=== PATIENT | female | born 1955 | race Caucasian/White ===

== ENCOUNTER 2020-09-09 10:59 | Emergency (ER) | payer OTHER, SELFPAY ==
[2020-09-09 11:31] VITALS: BP 183/115; PULSE 74; RESP 18; TEMP 36.2; O2SAT 96; BMI 34.9
--- NOTE | 2020-09-09 12:13 | XR_ITS ---
WS: [id number] Exam: XR chest 1V portable [id number] Date/Time of Exam: 09/09/2020 12:30 PM Reason For Exam: dyspnea/cough No priors. The lungs are clear and fully expanded. Normal cardiomediastinal structures and bony elements. There are 2 ill-defined soft tissue nodules that project over the left heart both measuring about a centime ter each at greatest diameter. This could be image artifact however nodules in the left lower lobe mi ght have similar appearance. Recommendations: A detailed PA and lateral chest radiograph would be suggested for follow-up. XR/XR chest 1V portable [id number] IMPRESSION: 1. No acute cardiopulmonary finding. 2. There are 2 ill-defined soft tissue nodules project over the left heart that could represent nodules in the left lower lobe.
--- NOTE | 2020-09-09 12:13 | ECG_ITS ---
[facility] Test Date: 2020-09-09 Pat Name: Sandy Syed Department: Room: Gender: Female Legal Collector: : 1955 Requested By: Kendall Acosta Order Number: [id number] Smooth MD: Pierre Bagley M.D. Measurements Intervals [place] Rate: 59 P: 18 IL: 117 QRS: 24 QRSD: 92 T: 16 QT: 398 QTc: 396 Interpretive Statements SINUS BRADYCARDIA WITH SHORT IL INTERVAL MINIMAL VOLTAGE CRITERIA FOR LVH, CONSIDER NORMAL VARIANT [MEETS CRITERIA IN ONE OF: R(aVL), S(V1), R(V5), R(V5/V6)+S(V1)] No previous ECG available for comparison Electronically Signed On 09-09-2020 17:41:14 CDT by Pierre Bagley M.D. [email or web address]
[2020-09-09 13:37] LABS: Basophils # 0.1 10^3/uL (0.0-0.1); Basophils % 1.1 %; Eosinophils # 0.1 10^3/uL (0.0-0.8); Eosinophils % 1.8 %; Hematocrit 43.4 % (37.0-47.0); Hemoglobin 13.5 g/dL (11.5-15.3); Lymphocytes # 1.6 10^3/uL (0.8-4.8); Lymphocytes % 26.3 %; Mean Corpuscular HGB Conc 31.1 g/dL (30.0-36.0); Mean Corpuscular Hemoglobin 29.3 pg (28.0-34.0); Mean Corpuscular Volume 94.3 fL (81-99); Mean Platelet Volume 13.8 fL (7.4-10.4); Monocytes # 0.6 10^3/uL (0.2-0.9); Monocytes % 9.4 %; Neutrophils % 61.2 %; Nucleated Red Blood Cells % 0 %; Platelet Count 176 10^3/cmm (130-400); Red Cell Distribution Width 12.9 % (12.1-15.1); White Blood Count 6.2 10^3/uL (4.0-10.0)
[2020-09-09 13:37] LABS: Add Urine Microscopic? YES; Bilirubin Urine Neg (Negative); Blood Urine Neg (Negative); Glucose Urine UA Norm (Normal); Ketones Urine 1+ (Negative); Leukocyte Esterase Urine Trace (Negative); Nitrate Urine Negative (Negative); Protein Urine Neg (Negative); Urine Appearance Clear (CLEAR); Urine Color Yellow (Yellow); Urobilinogen Urine Norm (Negative); pH Urine 7 (5-7)
[2020-09-09 13:56] LABS: Add Urine Culture? No; Bacteria Urine TRACE /hpf; RBC Urine 0-4 /hpf (0-2); Squamous Epithelial Cell Urine 0-4 /hpf (0-5); Transitional Epi Cells Urine 0-4 /hpf; WBC Urine 0-4 /hpf (0-5)
[2020-09-09 14:02] LABS: Alanine Aminotransferase 17 U/L (0-33); Albumin Level 4.6 g/dL (3.5-5.2); Alkaline Phosphatase 70 IU/L (35-105); Anion Gap 13.9 (5-19); Aspartate Amino Transferase 18 U/L (0-32); Blood Urea Nitrogen 10 mg/dL (8-23); Calcium 9.5 mg/dL (8.5-10.5); Carbon Dioxide 25 mmol/L (22-29); Chloride 105 mmol/L (98-107); Globulin 2.6 g/dL (1.3-4.6); Glomerular Filtration Rate 124.2 mL/min (90-130); Glucose 85 mg/dL (65-115); Osmolality Calculated 288 mOsm/kg (285-295); Potassium 3.9 mmol/L (3.5-5.1); Sodium 140 mmol/L (136-145); Total Bilirubin 1.1 mg/dL (0.15-1.2); Total Protein 7.2 g/dL (6.6-8.7)
[2020-09-09 14:28] VITALS: BP 210/94; PULSE 66; RESP 16; O2SAT 98
[2020-09-09] MEDS: amlodipine 5 mg Tablet PO (14:54)
[2020-09-09] MEDS: metoprolol tartrate 25 mg Tablet 12.5 MG PO (14:54)
[2020-09-09 15:19] VITALS: BP 204/93; RESP 18; O2SAT 96
[2020-09-09 16:03] LABS: Troponin T (5th) Once 6 ng/L (0-10)
[2020-09-09 16:05] VITALS: BP 176/91; PULSE 74; RESP 18; O2SAT 98
--- NOTE | 2020-09-09 16:09 | ED_ITS ---
HPI - General Adult General: Chief complaint: General Medical Stated complaint: high blood pressure Time Seen by Provider: 09/09/20 14:21 Source: patient Mode of arrival: ambulatory Limitations: no limitations History of Present Illness: HPI narrative: 65-year-old female patient who presents to the emergency department with worsening hypertension. She has no history of hypertension but said that 2 days ago she had vertigo, with symptoms consisting of the room spinning. She took meclizine which helped her symptoms. However she checked her blood pressure daily and it was elevated. She has been checking her blood pressure daily since then and it has been getting higher and is now in the 190s systolic. She denies a headache, chest pain, difficulty breathing. Denies any blood in her urine. Because her blood pressure remains elevated she presents to the emergency department to be seen and evaluated. Onset (ago): day(s) (2) Severity: moderate Associated symptoms: Deny chest pain, confusion, cough, diaphoresis, decreased appetite, dyspnea, fevers/chills, headache(s), malaise, nausea, rash, palpitations, seizures, short of breath, syncope, vomiting or weakness Review of Systems General: Reports: 10 or more systems reviewed and unremarkable except in HPI and below Const: Denies: malaise or diaphoresis Card: Denies: chest pain, palpitations or syncope Resp: Denies: dyspnea GI: Denies: nausea or vomiting Skin/Breast: Denies: rash Neuro: Denies: headache(s) or confusion PFS ED PFSH: Social History Smoking and tobacco status: never smoked Physical Exam Const: COMMON NORMALS: no acute distress, average body habitus, patient oriented x3, no limitations, healthy appearing, alert and well nourished HENMT: COMMON NORMALS: normocephalic, atraumatic and moist oral mucous membranes HEAD & SCALP: normocephalic and atraumatic Neck/C-Spine: COMMON NORMALS: no meningeal signs and no JVD Chest: COMMONS NORMALS: normal inspection of the chest and normal palpation of entire chest wall Resp: COMMON NORMALS: normal respiratory effort, No retractions, No use of accessory muscles, clear to auscultation bilaterally and percussion normal AUSCULTATION: clear to auscultation bilaterally PERCUSSION: percussion normal Cardio: COMMON NORMALS: no JVD, regular rate, regular rhythm, S1 normal heart sound present, S2 normal heart sound present, No gallops present (Cardio), No clicks present (Cardio), No murmurs present (Cardio), No rub (Cardio) and Peripheral pulses 2+ throughout RATE: regular rate RHYTHM: regular rhythm HEART SOUNDS: S1 normal heart sound present and S2 normal heart sound present PERIPHERAL PULSES: Peripheral pulses 2+ throughout GI: COMMON NORMALS: Normal to inspection, nondistended, normoactive bowel sounds present, Soft to palpation, non-tender, No hepatosplenomegaly present, no masses and no bruits PALPATION: Yes Soft to palpation and Yes No hepatosplenomegaly present Extremity: COMMON NORMALS: normal to inspection, full ROM, capillary refill normal, no calf tenderness and no pedal edema Neuro: COMMON NORMALS: patient oriented x3 SENSORIUM/ORIENTATION: Yes alert MENINGEAL SIGNS: Yes no meningeal signs Skin: COMMON NORMALS: no rashes or lesions noted, no wounds, turgor normal, no jaundice, no petechiae and no mottling GENERAL SKIN EXAM: no rashes or lesions noted and turgor normal Course Reevaluation(s): Reevaluation #1: Discussed her lab and imaging findings with her. Negative for acute findings. Blood pressure improving. We will discharge her home with a prescription for amlodipine. She will follow-up with her primary care provider for further monitoring of her blood pressure and adjustment of medication if needed. Chest x-ray shows incidental pulmonary nodules. She is to follow-up with her primary care provider for further characterization of the nodules including CT scan of her lungs. She voiced understanding and is in agreement with the plan Time: 16:09 Vital Signs: Vital signs: Vital Signs Temperature 97.2 F L 09/09/20 11:31 Pulse Rate 74 09/09/20 16:33 Respiratory Rate 18 09/09/20 16:33 Blood Pressure 176/91 09/09/20 16:33 Pulse Oximetry 98 09/09/20 16:33 MDM - General Adult MDM Narrative: Medical decision making narrative: 65-year-old female patient who presents to the emergency department with complaints of hypertension and vertigo. Evaluation in the ED is unremarkable. Blood pressure was significantly elevated in the emergency department but it responded to oral antihypertensives. She is discharged home with a prescription for amlodipine and is to follow-up with her primary care provider. Lab Data: Labs: Lab Results 09/09/20 09/09/20 09/09/20 Range/Units 12:50 13:31 13:31 WBC 6.2 (4.0-10.0) 10^3/ uL RBC 4.60 (4.1-5.3) 10^6/u L Hgb 13.5 (11.5-15.3) g/dL Hct 43.4 (37.0-47.0) % MCV 94.3 (81-99) fL MCH 29.3 (28.0-34.0) pg MCHC 31.1 (30.0-36.0) g/dL RDW 12.9 (12.1-15.1) % Plt Count 176 (130-400) 10^3/c mm MPV 13.8 H (7.4-10.4) fL Neut % (Auto) 61.2 % Lymph % (Auto) 26.3 % [place] % (Auto) 9.4 % Eos % (Auto) 1.8 % Baso % (Auto) 1.1 % Neut # (Auto) 3.80 (1.8-7.7) 10^3/u L Lymph # (Auto) 1.6 (0.8-4.8) 10^3/u L [place] # (Auto) 0.6 (0.2-0.9) 10^3/u L Eos # (Auto) 0.1 (0.0-0.8) 10^3/u L Baso # (Auto) 0.1 (0.0-0.1) 10^3/u L Nucleated RBC % (a uto) 0 % Nucleated RBCs # 0.0 /100WBC Sodium 140 (136-145) mmol/L Potassium 3.9 (3.5-5.1) mmol/L Chloride 105 (98-107) mmol/L Carbon Dioxide 25 (22-29) mmol/L Anion Gap 13.9 (5-19) BUN 10 (8-23) mg/dL Creatinine 0.5 (0.5-0.9) mg/dL GFR Calculation 124.2 (90-130) mL/min Glucose 85 (65-115) mg/dL Calculated Osmolal ity 288 (285-295) mOsm/k g Calcium 9.5 (8.5-10.5) mg/dL Total Bilirubin 1.1 (0.15-1.2) mg/dL AST 18 (0-32) U/L ALT 17 (0-33) U/L Alkaline Phosphata se 70 (35-105) IU/L Troponin T Gen 5 n g/L (0-10) ng/L Total Protein 7.2 (6.6-8.7) g/dL Albumin 4.6 (3.5-5.2) g/dL Globulin 2.6 (1.3-4.6) g/dL TSH (0.27-4.20) uIU/ mL Urine Color Yellow (Yellow) Urine Appearance Clear (CLEAR) Urine pH 7 (5-7) Ur Specific Gravit y 1.010 (1.005-1.030) Urine Protein Neg (Negative) Urine Glucose (UA) Norm (Normal) Urine Ketones 1+ H (Negative) Urine Blood Neg (Negative) Urine Nitrate Negative (Negative) Urine Bilirubin Neg (Negative) Urine Urobilinogen Norm (Negative) mg/dL Ur Leukocyte Selina ase Trace H (Negative) Urine RBC 0-4 H (0-2) /hpf Urine WBC 0-4 H (0-5) /hpf Ur Squamous Epith Cells 0-4 H (0-5) /hpf Ur Transition Epit h Cell 0-4 /hpf Amorphous Sediment Not Reportable Urine Bacteria Trace (NONE) /hpf 09/09/20 09/09/20 Range/Units 13:31 Unknown WBC (4.0-10.0) 10^3/ uL RBC (4.1-5.3) 10^6/u L Hgb (11.5-15.3) g/dL Hct (37.0-47.0) % MCV (81-99) fL MCH (28.0-34.0) pg MCHC (30.0-36.0) g/dL RDW (12.1-15.1) % Plt Count (130-400) 10^3/c mm MPV (7.4-10.4) fL Neut % (Auto) % Lymph % (Auto) % [place] % (Auto) % Eos % (Auto) % Baso % (Auto) % Neut # (Auto) (1.8-7.7) 10^3/u L Lymph # (Auto) (0.8-4.8) 10^3/u L [place] # (Auto) (0.2-0.9) 10^3/u L Eos # (Auto) (0.0-0.8) 10^3/u L Baso # (Auto) (0.0-0.1) 10^3/u L Nucleated RBC % (a uto) % Nucleated RBCs # /100WBC Sodium (136-145) mmol/L Potassium (3.5-5.1) mmol/L Chloride (98-107) mmol/L Carbon Dioxide (22-29) mmol/L Anion Gap (5-19) BUN (8-23) mg/dL Creatinine (0.5-0.9) mg/dL GFR Calculation (90-130) mL/min Glucose (65-115) mg/dL Calculated Osmolal ity (285-295) mOsm/k g Calcium (8.5-10.5) mg/dL Total Bilirubin (0.15-1.2) mg/dL AST (0-32) U/L ALT (0-33) U/L Alkaline Phosphata se (35-105) IU/L Troponin T Gen 5 n g/L 6 (0-10) ng/L Total Protein (6.6-8.7) g/dL Albumin (3.5-5.2) g/dL Globulin (1.3-4.6) g/dL TSH 0.63 (0.27-4.20) uIU/ mL Urine Color (Yellow) Urine Appearance (CLEAR) Urine pH (5-7) Ur Specific Gravit y (1.005-1.030) Urine Protein (Negative) Urine Glucose (UA) (Normal) Urine Ketones (Negative) Urine Blood (Negative) Urine Nitrate (Negative) Urine Bilirubin (Negative) Urine Urobilinogen (Negative) mg/dL Ur Leukocyte Selina ase (Negative) Urine RBC (0-2) /hpf Urine WBC (0-5) /hpf Ur Squamous Epith Cells (0-5) /hpf Ur Transition Epit h Cell /hpf Amorphous Sediment Urine Bacteria (NONE) /hpf Imaging Data^: CXR: Attestation: I personally reviewed and interpreted this imaging study as follows: Radiologist's impression: [facility] [facility].[place], [place] [address]LBqr ReportSigned Patient: Arely Syed #: [id number]: 6Acct#:[id number]/Sex: 65 / FADM Date: 09/09/20Loc: ERRoom/Bed:Attending Dr: Ordering Provider/Ordering MD: Kendall Dorado DO Date of Service: 09/09/20 Procedure(s): XR chest 1V portable [id number] Accession Number(s): [id number] Report Number: [id number] WS: [id number] Exam: XR chest 1V portable [id number] Date/Time of Exam: 09/09/2020 12:30 PM Reason For Exam: dyspnea/cough No priors. The lungs are clear and fully expanded. Normal cardiomediastinal structures and bony elements. There are 2 ill-defined soft tissue nodules that project over the left heart both measuring about a centimeter each at greatest diameter. This could be image artifact however nodules in the left lower lobe might have similar appearance. Recommendations: A detailed PA and lateral chest radiograph would be suggested for follow-up. XR/XR chest 1V portable [id number] IMPRESSION: 1. No acute cardiopulmonary finding. 2. There are 2 ill-defined soft tissue nodules project over the left heart that could represent nodules in the left lower lobe. Dictated By:Marieigned By:Jacque Gilbert Date/Time:09/09/20 1246DD/ 1242 EKG Data^: EKG 1: Attestation: I personally reviewed and interpreted this EKG as follows: EKG interpretation date: 09/09/20 EKG interpretation time: 13:59 Prior EKG tracings: available for review Interpretation: Sinus bradycardia. Heart rate [address] changes. Computer generated interpretation: Chest X-Ray 09/09/20 12:13 IMPRESSION: 1. No acute cardiopulmonary finding. 2. There are 2 ill-defined soft tissue nodules project over the left heart that could represent nodules in the left lower lobe. Discharge Plan Discharge Patient Disposition: Home Clinical Impression: Hypertensive urgency, Pulmonary nodule Benign paroxysmal positional vertigo Qualifiers: Laterality: unspecified laterality Qualified Code(s): H81.10 - Benign paroxys mal vertigo, unspecified ear Condition: Stable Prescriptions: New amlodipine 5 mg tablet 5 mg PO DAILY Qty: 30 RF: 0 Continued armour thyroid 60 mg PO DAILY RF: 0 multivitamin Tablet 1 tab PO DAILY RF: 0 Discharge Orders: Discharge ED (Routine); Ordered 09/09/20 Ordered By: Kamar Hernandez Referrals: Paulino Smallwood DO [Primary Care Provider] - 1-3 days Discharge Diet: As Directed Discharge Activity: Increase activity as tolerated Patient Instructions: Vertigo (ED), Hypertension (ED) Activity Restrictions/Additional Instructions: Return for any new or worsening symptoms. Follow-up with your primary care provider within 3 days. Take the blood pressure medication that I prescribed every day and check your blood pressure at least once a day. Consume a low salt diet. Coding Level of Care Code ED Clinical Staff Educator for Alba Wheeler
[2020-09-09 16:33] VITALS: BP 176/91; PULSE 74; RESP 18; O2SAT 98
[2020-09-09 17:03] LABS: Thyroid Stimulating Hormone 0.63 uIU/mL (0.27-4.20)
== END 2020-09-09 16:34 | disposition home or self-care (01) ==
PROVIDERS: Family Medicine; Emergency Provider Family Medicine; PCP Family Medicine
DX: I16.0 Hypertensive urgency (principal); R91.8 Other nonspecific abnormal finding of lung field; H81.10 Benign paroxysmal vertigo, unspecified ear
CPT/HCPCS: 36415; 71045; 80053; 81001; 84443; 84484; 85025; 93005; 99284

== ENCOUNTER → 2020-09-22 11:33 | Outpatient (BNVA) | payer OTHER, SELFPAY | PROVIDERS: PCP Family Medicine; Visit Provider Family Medicine | DX: E03.9 Hypothyroidism, unspecified (principal); I10 Essential (primary) hypertension | CPT/HCPCS: 80061; 82043; 84439 ==

== ENCOUNTER 2022-02-17 06:00 | Outpatient (RCR) | payer MEDICARE, OTHER, SELFPAY | END 2022-03-16 23:59 | disposition home or self-care (01) | LOC: SPT 06:00 | PROVIDERS: PCP Family Medicine; Visit Provider Family Medicine | DX: M54.6 Pain in thoracic spine (principal) | CPT/HCPCS: 97110; 97161; 97530 ==

== ENCOUNTER 2022-03-17 06:00 | Outpatient (RCR) | payer OTHER, MEDICARE, SELFPAY | END 2022-03-30 23:59 | disposition home or self-care (01) | LOC: SPT 06:00 | PROVIDERS: PCP Family Medicine; Visit Provider Family Medicine | DX: M54.6 Pain in thoracic spine (principal); G89.29 Other chronic pain | CPT/HCPCS: 97110 ==

== ENCOUNTER 2022-03-23 09:07 | Outpatient (CLI) | payer MEDICARE, OTHER, SELFPAY ==
--- NOTE | 2022-03-23 09:19 | MM_ITS ---
WS: [id number] SCREENING DIGITAL BREAST TOMOSYNTHESIS MAMMOGRAM WITH CAD HISTORY: screening mammogram COMPARISON: 12/25/2008 Bilateral CC and MLO with tomosynthesis and synthetic mammography submitted. Computer aided detection analyzed. Breast composition: There are scattered areas of fibroglandular density. Seen on the LEFT CC projecti on in the posterior breast is a 7 mm asymmetry. No corresponding finding seen on the lateral projecti on. This was not present on the prior study. Otherwise no abnormality. MM/[place] [id number] IMPRESSION: BI-RADS: 0-Incomplete: Need additional imaging evaluation FOLLOW UP: Need Additional Imaging LEFT breast: Spot compression views (CC ). True ML. Ultrasound to follow if abn ormality persists.
== END 2022-03-23 09:08 | disposition home or self-care (01) ==
LOC: RAD 09:09
PROVIDERS: PCP Family Medicine; Visit Provider Family Medicine
DX: Z12.31 Encounter for screening mammogram for malignant neoplasm of breast (principal)
CPT/HCPCS: 77063; 77067

== ENCOUNTER 2022-03-25 13:19 | Outpatient (CLI) | payer MEDICARE, OTHER, SELFPAY ==
--- NOTE | 2022-03-25 13:00 | XR_ITS ---
WS: [id number] DEXA (DUAL ENERGY X-RAY ABSORPTIOMETRY) Bone mineral density was performed using a Kiwigrid machine. HISTORY: post-menopausal COMPARISON: None available. Lumbar spine BMD (L1-L4): 0.896 g/cm2 T score: -2.4 Z score: -1.5 Total hip BMD: Left: 0.873 g/cm2. T score: -1.1 Z score: -0.4 Right: 0.934 g/cm2. T score: -0.6 Z score: 0.1 10 year probability of a major osteoporotic fracture is 10%. XR/XR DEXA axial skeleton* [id number] IMPRESSION: OSTEOPENIA based upon the WHO classification for females.
== END 2022-03-25 13:20 | disposition home or self-care (01) ==
LOC: RAD 13:20
PROVIDERS: PCP Family Medicine; Visit Provider Family Medicine
DX: Z78.0 Asymptomatic menopausal state (principal); M85.80 Other specified disorders of bone density and structure, unspecified site
CPT/HCPCS: 77080

== ENCOUNTER 2022-04-20 13:39 | Outpatient (CLI) | payer MEDICARE, OTHER, SELFPAY ==
--- NOTE | 2022-04-20 14:00 | MM_ITS ---
WS: [id number] Left breast diagnostic 3D tomosynthesis digital mammogram, 04/20/2022 Clinical Data: abnormal left breast on mammo Comparison: 03/23/2022, 12/25/2008, 04/28/2006. Findings: The vague density noted on the left cc view on 03/23/2022 is not seen on the repeat CC and the MLO vie ws of the left breast. Only normal breast tissue is seen. There are no spiculated masses. No cysts ar e seen. Only normal breast tissue is noted. MM/[place] [address] Impression: 1. Negative left breast mammogram. 2. Left breast ultrasound will be performed. BIRADS: 1-Negative FOLLOW UP: See Report The CAD checkerer hand was used.
--- NOTE | 2022-04-20 14:00 | US_ITS ---
WS: [email or web address] Left breast ultrasound, 04/20/2022 Clinical Data: Z12.31 - Encounter for screening mammogram for malignant ... Comparison: Mammogram, 04/20/2022 Findings: Imaging of the left breast in the lower outer quadrant revealed no cysts or masses. Only normal breas t tissue was seen. US/US breast LT limited* 80207 Impression: 1. Negative left breast ultrasound. 2. Return to annual screening mammograms. BIRADS: 1-Negative FOLLOW UP: See Report
== END 2022-04-20 13:40 | disposition home or self-care (01) ==
PROVIDERS: PCP Family Medicine; Visit Provider Family Medicine
DX: R92.8 Other abnormal and inconclusive findings on diagnostic imaging of breast (principal)
CPT/HCPCS: 76642; 77061; G0279

== ENCOUNTER → 2022-08-23 10:16 | Outpatient (BNVA) | payer MEDICARE, SELFPAY | PROVIDERS: PCP Family Medicine; Visit Provider Family Medicine | DX: I10 Essential (primary) hypertension (principal); E03.9 Hypothyroidism, unspecified | CPT/HCPCS: 80053; 80061; 82043; 84439; 84443; 84480; 85025 ==

== ENCOUNTER → 2023-01-19 13:29 | Outpatient (BNVA) | payer MEDICARE, SELFPAY | PROVIDERS: PCP Family Medicine; Visit Provider Dermatology | DX: L82.0 Inflamed seborrheic keratosis (principal); L81.4 Other melanin hyperpigmentation; D18.01 Hemangioma of skin and subcutaneous tissue; L82.1 Other seborrheic keratosis | CPT/HCPCS: 17110; 99213 ==

== ENCOUNTER 2023-01-23 10:30 | Emergency (ER) | payer MEDICARE, SELFPAY ==
--- NOTE | 2023-01-23 10:31 | XRR_ITS ---
PROCEDURE INFORMATION: Exam: XR Left Knee Exam date and time: 01/23/2023 10:48 AM Age: 68 years old Clinical indication: Pain; Knee; Left TECHNIQUE: Imaging protocol: Radiologic exam of the left knee. Views: 3 views. COMPARISON: No relevant prior studies available. FINDINGS: Bones/joints: Normal. Soft tissues: Normal. XR/XR knee LT 3V* [id number] IMPRESSION: No acute findings.
[2023-01-23 10:38] VITALS: BP 149/87; PULSE 69; RESP 15; TEMP 36.7; O2SAT 97; BMI 33.3
--- NOTE | 2023-01-23 10:51 | W.ED.BACK ---
HPI - Back Pain/Injury General: Chief Complaint: Back Pain/Injury Stated Complaint: left knee pain Time Seen by Provider: 01/23/23 10:33 Source: patient Mode of arrival: ambulatory History of Present Illness: 68-year-old female states 5 days ago she was lifting a heavy trash can twisted she has back pain and left knee pain radiates down from back to her left hip thigh and knee. Is more severe in the knee today. She has had a slight limp no other injury or fall she has had some chronic back pain issues in the past. MD elicited complaint: back pain Pertinent past history: prior back pain Onset (ago): day(s) (5) Timing: constant Severity: moderate Similar Symptoms Previously: Yes Quality: aching Location: lumbar spine Radiation: left upper leg Exacerbating factors: movement, sitting upright and walking Relieving factors: supine Context: while lifting and turning/twisting Associated symptoms: Reports myalgias and tingling/numbness/burning; Deny abdominal pain, arthralgias, chills, change in bowel habits, difficulty walking, dysuria, fatigue, fecal incontinence, fever(s), hematuria, nausea, numbness, syncope, urinary frequency, urinary urgency, vomiting or weakness Work related injury: No Review of Systems Const: Denies: fever(s), chills or fatigue Card: Denies: syncope Resp: Denies: dyspnea GI: Denies: abdominal pain, nausea, vomiting, fecal incontinence or change in bowel habits : Denies: dysuria, urinary urgency or hematuria Musc: Denies: neck pain or back pain Skin/Breast: Denies: rash Neuro: Denies: difficulty walking PFSH ED PFSH: Medical History Essential hypertension Hypothyroidism Seasonal allergies Surgical History History of tonsillectomy and adenoidectomy Family History Other CAD (coronary artery disease) Dementia Diabetes Hypertension Social History Smoking and tobacco status: never smoked Alcohol intake: current Alcohol intake frequency: 0-2 Drinks per Day Substance/Drug Use: never Physical Exam Const: COMMON NORMALS: no acute distress GENERAL APPEARANCE: cooperative and comfortable ORIENTATION/CONSCIOUSNESS: Yes awake, Yes oriented to person, Yes oriented to place and Yes oriented to time HENMT: COMMON NORMALS: normocephalic, atraumatic and hearing grossly normal bilaterally HEAD & SCALP: normocephalic and atraumatic Resp: COMMON NORMALS: normal respiratory effort, No retractions, No use of accessory muscles and clear to auscultation bilaterally AUSCULTATION: clear to auscultation bilaterally Cardio: COMMON NORMALS: regular rate, regular rhythm and No murmurs present (Cardio) RATE: regular rate RHYTHM: regular rhythm Extremity: COMMON NORMALS: normal to inspection, capillary refill normal, no clubbing, cyanosis or edema, no calf tenderness and no pedal edema OTHER: Examination left knee no instability of collateral or cruciate ligaments. No joint effusion Neuro: SENSORIUM/ORIENTATION: Yes oriented to person, Yes oriented to place and Yes oriented to time OTHER: Patellar tendons +1 of 4 bilaterally dorsum plantarflexion 5/5 sensation normal straight leg raising negative Skin: COMMON NORMALS: no rashes or lesions noted GENERAL SKIN EXAM: no rashes or lesions noted Course Vital Signs: Vital signs: Vital Signs Temperature 98.0 F 01/23/23 10:38 Pulse Rate 69 01/23/23 10:38 Respiratory Rate 15 01/23/23 10:38 Blood Pressure 149/87 01/23/23 10:38 Pulse Oximetry 97 01/23/23 10:38 Oxygen Delivery Me thod Room Air 01/23/23 10:38 MDM - Back Pain/Injury Medical Decision Making Normal x-ray left knee. Based on her history and exam suspect she has irritation of the L4 V nerve root on the left start on prednisone muscle relaxers and anti-inflammatories. Follow-up with primary care if not improving can refer to PT or advanced imaging as deemed appropriate Medical Records I reviewed the patient's medical records. Labs I reviewed the patient's lab results. XR interpretation done by ED provider, pending radiology final review Discharge Plan Discharge Patient Disposition: Home Clinical Impression: Lumbar radiculopathy Condition: Stable Prescriptions: New tizanidine 4 mg tablet 4 mg PO Q6H PRN (Reason: muscle spasticity) Qty: 20 0RF Rx Instructions: do not exceed 3 doses per 24 hrs prednisone 20 mg tablet 20 mg PO TID Qty: 15 0RF Rx Instructions: 1 p.o. 3 times daily x3 days, 1 p.o. twice daily x2 days, 1 p.o. daily x2 days diclofenac sodium 75 mg tablet,delayed release (DR/EC) 75 mg PO Q12H PRN (Reason: pain) Qty: 20 0RF Discontinued ibuprofen 200 mg Tablet 200 mg PO Q4H PRN (Reason: Pain) No Action losartan 25 mg tablet 25 mg PO BID Qty: 180 1RF multivitamin Tablet 1 tab PO QAM [place] Thyroid 60 mg tablet 60 mg PO QAM Unknown Otc Supplement Names See Rx Instructions .ROUTE .COMPLEX Rx Instructions: pt states she takes some other otc supplements but states she cant think of the names of them Discharge Orders: Discharge ED (Routine); Ordered 01/23/23 Ordered By: Kendall Dorado Referrals: Ximena Aragon DO [Primary Care Provider] - Discharge Diet: Usual diet Discharge Activity: Increase activity as tolerated Patient Instructions: Lumbar Radiculopathy (ED), Opioid Safety, Pain Management Coding Level of Care Code ED Wood Repatcher for Alba Wheeler
--- NOTE | 2023-01-23 11:16 | PC.PHAR ---
pt states she takes care of her own medications-pt states she takes some other otc supplements but states she cant think of the names of them-
[2023-01-23] MEDS: orphenadrine 30 mg/mL Inj 2 mL 60 MG IVP (11:20)
[2023-01-23] MEDS: dexamethasone 10 mg/mL INJ IM (11:20)
[2023-01-23] MEDS: ketorolac 30 mg/mL INJ IVP (11:20)
== END 2023-01-23 12:03 | disposition home or self-care (01) ==
PROVIDERS: Emergency Provider Family Medicine; PCP Family Medicine
DX: M54.16 Radiculopathy, lumbar region (principal); I10 Essential (primary) hypertension
CPT/HCPCS: 73562; 96372; 96374; 96375; 99284; J1100; J1885; J2360

== ENCOUNTER 2023-01-27 11:13 | Outpatient (CLI) | payer MEDICARE, SELFPAY ==
--- NOTE | 2023-01-27 11:19 | XR_ITS ---
WS: [email or web address] Lumbar spine, 3 views, 01/27/2023 Clinical Data: back pain Comparison: None. Findings: No compression fractures are seen. There is degenerative disc narrowing at L4-L5 and L5-S1. There is 0.6 cm anterior subluxation of L4 on L5. The transverse processes and SI joints are normal. Impression: 1. Degenerative disc narrowing at L4-L5 and L5-S1. 2. 0.6 cm anterior subluxation of L4 on L5.
== END 2023-01-27 11:14 | disposition home or self-care (01) ==
PROVIDERS: PCP Family Medicine; Visit Provider Family Medicine
DX: M54.16 Radiculopathy, lumbar region (principal); M51.37 Other intervertebral disc degeneration, lumbosacral region
CPT/HCPCS: 72100

== ENCOUNTER 2023-02-21 11:58 | Outpatient (RCR) | payer MEDICARE, SELFPAY | END 2023-03-16 23:59 | disposition home or self-care (01) | LOC: SPT 11:58 | PROVIDERS: PCP Family Medicine; Visit Provider Family Medicine | DX: M54.16 Radiculopathy, lumbar region (principal); M54.6 Pain in thoracic spine; G89.29 Other chronic pain | CPT/HCPCS: 97110; 97161; 97530 ==

== ENCOUNTER 2023-03-17 06:00 | Outpatient (RCR) | payer MEDICARE, SELFPAY | END 2023-03-17 23:59 | disposition home or self-care (01) | LOC: SPT 06:00 | PROVIDERS: PCP Family Medicine; Visit Provider Family Medicine | DX: M54.16 Radiculopathy, lumbar region (principal); M54.6 Pain in thoracic spine; G89.29 Other chronic pain | CPT/HCPCS: 97110; 97530 ==

== ENCOUNTER → 2023-03-23 14:16 | Outpatient (BNVA) | payer MEDICARE, SELFPAY | PROVIDERS: PCP Family Medicine; Visit Provider Dermatology | DX: L81.4 Other melanin hyperpigmentation (principal); L82.1 Other seborrheic keratosis; D22.5 Melanocytic nevi of trunk; D22.62 Melanocytic nevi of left upper limb, including shoulder; D22.72 Melanocytic nevi of left lower limb, including hip; L82.0 Inflamed seborrheic keratosis | CPT/HCPCS: 17110; 99213 ==

== ENCOUNTER → 2023-06-05 09:55 | Outpatient (BNVA) | payer MEDICARE, SELFPAY | PROVIDERS: PCP Family Medicine; Visit Provider Family Medicine | DX: Z11.59 Encounter for screening for other viral diseases (principal); E03.9 Hypothyroidism, unspecified; I10 Essential (primary) hypertension; Z13.6 Encounter for screening for cardiovascular disorders | CPT/HCPCS: 80053; 84439; 84443; 84480; 86803 ==

== ENCOUNTER 2023-06-13 08:29 | Outpatient (CLI) | payer MEDICARE, SELFPAY ==
--- NOTE | 2023-06-13 08:30 | MM_ITS ---
WS: [email or web address] VIEWS: MLO and CC views both breasts. 3D digital tomosynthesis is also included in this exam. Comparison made with prior exam of 04/28/2006, 03/23/2022, 04/20/2022,. Findings: There was no sign of mass, architectural distortion or suspicious calcification in either breast. Sta ble appearing nodular densities in the LEFT breast. There are scattered areas of fibroglandular densi ty Impression: MM/[place] [id number] BI-RADS: 2-Benign finding. FOLLOW-UP: 1 Year Follow-up This mammogram was also analyzed by the Computer Aided Detection System R2 Imag e [employer].
== END 2023-06-13 08:30 | disposition home or self-care (01) ==
LOC: RAD 08:29
PROVIDERS: PCP Family Medicine; Visit Provider Family Medicine
DX: Z12.31 Encounter for screening mammogram for malignant neoplasm of breast (principal); R92.323 Mammographic fibroglandular density, bilateral breasts; N63.20 Unspecified lump in the left breast, unspecified quadrant
CPT/HCPCS: 77063; 77067

== ENCOUNTER 2023-08-14 08:38 | Outpatient (CLI) | payer MEDICARE, SELFPAY ==
--- NOTE | 2023-08-14 08:45 | MR_ITS ---
WS: [id number] MRI LUMBAR SPINE NONCONTRAST HISTORY: low back pain with left sided sciatica / weakness COMPARISON: None available. TECHNIQUE: Sagittal and axial multisequence imaging is submitted. Moderate increase in thoracic kyphosis. Mild increase in the lumbar lordosis. No marrow edema or acute fracture. Mild desiccation of the disc spaces. Conus terminates normally at L1-2 disc level. L1-L2: Normal. L2-L3: Very mild disc bulging and facet arthritis. No stenosis. L3-L4: Mild bilateral facet arthritis. No stenosis. L4-L5: Moderate annular disc bulging, osteophytic ridging, ligamentum flavum and facet arthritis. Enc roachment upon the central canal. Mild central, bilateral subarticular recess and foraminal stenosis. There is very mild disc contact on the traversing L5 nerve roots and the LEFT exiting L4 nerve root. 5 mm facet joint cyst on the LEFT contacts the posterior LEFT lateral thecal sac and the nerve root. Facet joint arthritis with interspinous muscle edema. L5-S1: Mild annular disc bulging with a central disc protrusion and annular fissure. There is very mi nimal encroachment upon the S1 nerve roots. Mild bilateral foraminal narrowing. Mild facet arthritis. IMPRESSION: 1. No acute lumbar spine fracture. 2. L4-5: Mild central, bilateral subarticular recess and foraminal stenosis. Mild disc contact on th e traversing L5 nerve roots in the LEFT exiting L4 nerve root. 3. Marked facet joint arthritis at L4-5 with a small facet joint cyst on the LEFT contacting the pos terior lateral thecal sac. 4. L5-S1: Central disc protrusion with annular fissure. Mild encroachment upon the S1 nerve roots an d foraminal stenosis.
== END 2023-08-14 08:39 | disposition home or self-care (01) ==
LOC: RAD 08:38
PROVIDERS: PCP Family Medicine; Visit Provider Family Medicine
DX: M54.42 Lumbago with sciatica, left side (principal); M48.061 Spinal stenosis, lumbar region without neurogenic claudication; M51.27 Other intervertebral disc displacement, lumbosacral region
CPT/HCPCS: 72148

== ENCOUNTER → 2023-08-24 16:37 | Outpatient (BNVA) | payer MEDICARE, SELFPAY | PROVIDERS: PCP Family Medicine; Visit Provider Orthopaedic Surgery | DX: M54.9 Dorsalgia, unspecified (principal); M54.42 Lumbago with sciatica, left side | CPT/HCPCS: 72110; 99204 ==

== ENCOUNTER 2023-09-19 11:27 | Outpatient (RCR) | payer MEDICARE, OTHER, SELFPAY | END 2023-10-15 23:59 | disposition home or self-care (01) | LOC: SPT 11:27 | PROVIDERS: PCP Family Medicine; Visit Provider Orthopaedic Surgery | DX: M54.9 Dorsalgia, unspecified (principal); G89.29 Other chronic pain | CPT/HCPCS: 97110; 97161 ==

== ENCOUNTER → 2023-09-28 14:33 | Outpatient (BNVA) | payer MEDICARE, OTHER, SELFPAY | PROVIDERS: PCP Family Medicine; Visit Provider Family Medicine | DX: E03.9 Hypothyroidism, unspecified (principal) | CPT/HCPCS: 84439; 84443; 84480 ==

== ENCOUNTER 2023-10-16 06:00 | Outpatient (RCR) | payer MEDICARE, OTHER, SELFPAY | END 2023-11-15 23:59 | disposition home or self-care (01) | LOC: SPT 06:00 | PROVIDERS: PCP Family Medicine; Visit Provider Orthopaedic Surgery | DX: M54.9 Dorsalgia, unspecified (principal); G89.29 Other chronic pain | CPT/HCPCS: 97110 ==

== ENCOUNTER 2023-11-16 06:00 | Outpatient (RCR) | payer MEDICARE, OTHER, SELFPAY | END 2023-12-05 23:59 | disposition home or self-care (01) | LOC: SPT 06:00 | PROVIDERS: PCP Family Medicine; Visit Provider Orthopaedic Surgery | DX: M54.9 Dorsalgia, unspecified (principal); G89.29 Other chronic pain | CPT/HCPCS: 97110 ==

== ENCOUNTER → 2023-12-26 13:18 | Outpatient (BNVA) | payer MEDICARE, OTHER, SELFPAY | PROVIDERS: PCP Family Medicine; Visit Provider Family Medicine | DX: I10 Essential (primary) hypertension (principal); E03.9 Hypothyroidism, unspecified; M85.80 Other specified disorders of bone density and structure, unspecified site | CPT/HCPCS: 82306; 84439; 84443; 84481 ==

== ENCOUNTER → 2024-01-11 08:11 | Outpatient (BNVA) | payer MEDICARE, OTHER, SELFPAY | PROVIDERS: PCP Family Medicine; Visit Provider Orthopaedic Surgery | DX: Z09 Encounter for follow-up examination after completed treatment for conditions other than malignant neoplasm (principal) | CPT/HCPCS: 99213 ==

== ENCOUNTER 2024-06-18 13:21 | Outpatient (CLI) | payer MEDICARE, OTHER, SELFPAY ==
--- NOTE | 2024-06-18 13:30 | XR_ITS ---
WS: [id number] DEXA (DUAL ENERGY X-RAY ABSORPTIOMETRY) Bone mineral density was performed using a [employer] machine. HISTORY: postmenopausal; osteopenia on 03/2022 COMPARISON: 03/25/2022 Lumbar spine BMD (L1-L4): 0.944 g/cm2 T score: -2.0 Z score: -0.9 Total hip BMD: Left: 0.966 g/cm2. T score: -0.3 Z score: 0.6 Right: 0.871 g/cm2. T score: -1.1 Z score: -0.2 10 year probability of a major osteoporotic fracture is 10.7%. Compared to the prior study from 03/25/2022. Lumbar spine bone mineral density has increased by 5.4%. Bilateral hips bone mineral density has increased by 1.7%. XR/XR DEXA axial skeleton* [id number] IMPRESSION: OSTEOPENIA based upon the WHO classification for females. Significant increase in bone mineral density within the lumbar spine since the prior study. No change in bone mineral density within the hip.
== END 2024-06-18 13:22 | disposition home or self-care (01) ==
LOC: RAD 13:26
PROVIDERS: PCP Family Medicine; Visit Provider Family Medicine
DX: Z78.0 Asymptomatic menopausal state (principal); M85.80 Other specified disorders of bone density and structure, unspecified site
CPT/HCPCS: 77080

== ENCOUNTER → 2024-06-25 12:44 | Outpatient (BNVA) | payer MEDICARE, OTHER, SELFPAY | PROVIDERS: PCP Family Medicine; Visit Provider Family Medicine | DX: Z00.00 Encounter for general adult medical examination without abnormal findings (principal); Z11.59 Encounter for screening for other viral diseases; Z13.6 Encounter for screening for cardiovascular disorders; E03.9 Hypothyroidism, unspecified; I10 Essential (primary) hypertension | CPT/HCPCS: 80053; 80061; 84439; 84443; 85025 ==

== ENCOUNTER → 2024-12-31 13:23 | Outpatient (BNVA) | payer MEDICARE, OTHER, SELFPAY | PROVIDERS: PCP Family Medicine; Visit Provider Family Medicine | DX: E53.8 Deficiency of other specified B group vitamins (principal); R53.83 Other fatigue; D50.9 Iron deficiency anemia, unspecified; E03.9 Hypothyroidism, unspecified; Z13.6 Encounter for screening for cardiovascular disorders | CPT/HCPCS: 82607; 82728; 83550; 84439; 84443; 84480; 85025 ==

== ENCOUNTER → 2025-01-14 13:02 | Outpatient (BNVA) | payer MEDICARE, OTHER, SELFPAY | PROVIDERS: PCP Family Medicine; Visit Provider Family Medicine | DX: L98.9 Disorder of the skin and subcutaneous tissue, unspecified (principal) | CPT/HCPCS: 88304 ==